=== PATIENT | female | born 1950 | race Two or more races ===

== ENCOUNTER 2025-01-27 11:18 | Outpatient (AMB) | payer OTHER, SELFPAY ==
--- NOTE | 2025-01-27 11:29 | A.OFFVIS_ITS ---
Intake Visit Reasons: 6 Month f/u Allergies No Known Allergies Allergy (Verified 01/19/25 13:08) HPI Comments Details: 74 y/o woman with HTN, DM, cerebral microvascular changes of brain and associated dementia, and migraine vs complex partial seizure disorder resulting in confusion or unresponsiveness. She is presenting with reported insomnia and memory lapses. She experiences early childhood teacher awakenings around 3:00 AM, often after going to bed at 8:00 PM. Discontinuation of trazodone was due to resultant grogginess. Notable memory lapses include leaving a pot on the stove, indicating occasional distractibility. Overall, the patient reports no significant mood disturbances or changes in bladder function and remains physically active without other health issues. [facility] Medical History (Updated 01/27/25 @ 11:35 by Meek Elizabeth MD) Alzheimer dementia Anxiety Multifactorial dementia MCI (mild cognitive impairment) Insomnia Migraine Vascular dementia Cerebral microvascular disease Complex partial seizures Review of Systems Const Details: - Sleep: Reports insomnia with early awakenings - Memory: Reports lapses - Mood: Denies mood disturbances - Bladder: Denies changes in bladder function Physical Exam Neuro Other: Mental Status: Alert and oriented to person, place, and time. Normal attention. Normal spontaneous speech, fluency, and comprehension. Cranial Nerves: CN II: Visual soni full to confrontation, visual acuity intact. CN III, IV, : Pupils equal, round, reactive to light and accommodation. Extraocular movements are normal. CN V: Facial sensation is normal. CN VII: Facial movements symmetrical. CN VIII: Hearing intact to bedside conversation is normal. CN IX, X: Palate elevates symmetrically. CN XI: Shoulder shrug and head turn symmetrical. CN XII: Tongue midline without atrophy or fasciculations. Coordination: Qunsod-rl-opyk and eavs-iq-hyph testing normal. No dysmetria. Gait and Station: No obvious gait abnormality. No ataxia or instability. Extrapyramidal: Full facial expressions and blinking. No rigidity. Movements are appropriate with no tremor or abnormality. Speech: Normal; no dysarthria or tremor. Assessment & Plan Assessment & Plan (1) Alzheimer dementia: Comment: MRI leland at [facility] w/o cont in 2011: Multiple bilateral WM lesions, somewhat atypical, ?infarcts, ?vascular pathology, not periventricular MRI brain at [facility] in Sep w/o: No sig change from previous MRI 24 hr EEG at [facility] in 2012: minimal abn, no event reported Routine EEG at office in 2020: WNL Routine EEG at office in 2014: WNL Routine EEG at office in 2012: WNL Code(s): G30.9 - Alzheimer's disease, unspecified; F02.80 - Dementia in other diseases classified elsewhere, unspecified severity, without behavioral disturbance, psychotic disturbance, mood disturbance, and anxiety Category: Medical Qualifiers: Alzheimer's disease onset: late onset Dementia severity: mild Dementia behavioral or psychological symptom: without behavioral, psychotic, or mood disturbance or anxiety Qualified Code(s): G30.1 - Alzheimer's disease with late onset; F02.A0 - Dementia in other diseases classified elsewhere, mild, without behavioral disturbance, psychotic disturbance, mood disturbance, and anxiety Plan Impression: Mild dementia probably of Alzheimer type Rec: Donepezil 10mg a day Medications: New donepezil 10 mg PO BEDTIME 90 tabs 1RF Coding Level of Care Code Est Pt Level 4 (81683) Diagnoses Mild late onset Alzheimer's dementia without behavioral disturbance, psychotic disturbance, mood disturbance, or anxiety G30.1; F02.A0 Alzheimer's disease onset: late onset Dementia severity: mild Dementia behavioral or psychological symptom: without behavioral, psychotic, or mood disturbance or anxiety
--- OUTSIDE RECORDS SUMMARY | 2025-01-27 12:41 | XMS_ITS | Clinical Summary ---
Author Organization [employer] Address [address] [place] [address] Care Team Providers Care Mri Technician Name Role Phone Unavailable Primary Care Provider Unavailabl e Allergies No known active allergies Medications atorvastatin (Lipitor) 80 MG tablet Take 1 tablet by mouth. 10/17/2023 Active B Complex Vitamins (Vitamin B Complex) capsule 02/04/2024 Active B Tjlnlgc-W-Duhkx Acid (WesCaps) 1 MG capsule 04/28/2024 Active Calcium Carb-Cholecalci ferol 500-10 MG-MCG tablet 08/01/2023 Activ e gabapentin (Neurontin) 300 MG capsule Take 1 capsule by mouth. 11/29/2023 Active OneTouch Ultra Test test strip 05/04/2024 Act angie Lancets (OneTouch Delica Plus [id number]) misc 04/09/2024 Act angie metFORMIN (Glucophage) 500 MG tablet Take 1 tablet by mouth. 10/18/2023 Active polyethylene glycol, PEG, 3350 (Glycolax) 17 GM/SCOOP powder 05/11/2024 Active verapamil ER (Verelan) 180 MG 24 hr capsule Take 1 capsule by mouth. 10/18/2023 Active Active Problems Problem Noted Date Diagnosed Date Abnormal cytological findings in female genital organs 06/18/2024 Cervical spondylosis 06/18/2024 Epilepsy 06/18/2024 Family history of alcoholism in brother 06/18/19 Family history of diabetes mellitus 06/18/2024 Family history of hypertension 06/18/2024 GERD (gastroesophageal reflux disease) Hypercholesterolemia 06/18/2024 Hypertension 06/18/2024 Migraines 06/18/2024 Mild major depression 06/18/2024 Osteoarthritis of carpometacarpal (CMC) joint of thumb 06/18/2024 Osteoarthritis of hip 06/18/2024 Transient global amnesia 06/18/2024 Vitamin D deficiency 06/18/2024 Osteoporosis 05/31/2021 Social History Tobacco Use Types Packs/Day Years Used Date Smoking Tobacco: Never Passive Smoke Exposure: Never Smokeless Tobacco: Never Tobacco Cessation:Counseling Given: Not Answered Alcohol Use Standard Drinks/Week Comments Defer 0 (1 standard drink = 0.6 oz pur e alcohol) Comments Unknown Sex and Gender Information Value Date Recorded Sex Assigned at Female 04/09/2022 10:30 AM EDT Legal Sex Female 10:30 AM EDT Gender Identity Female 04/09/2022 10:30 AM EDT Sexual Orientation Straight 04/09/2022 10 :30 AM EDT Last Filed Vital Signs Vital Sign Reading Time Taken Comments Blood Pressure 110/80 06/18/2024 3:07 PM EST Pulse - - Temperature - - Respiratory Rate - - Oxygen Saturation - - Inhaled Oxygen Concentration - - Weight - - Height - - Body Mass Index - - Plan of Treatment Health Maintenance Due Date Last Done Comments CT Colonography 1950 Colonoscopy 1950 Colorectal Cancer Screening 1950 Depression Screening 1950 FIT DNA/Cologuard 1950 FIT 1950 FOBT 1950 Lipid Panel 1950 SDOH Screening 1950 Sigmoidoscopy 1950 Alcohol/Substance Use Screening 1962 Hepatitis C Screening 1968 Zoster Vaccines (2 of 3) 01/14/2016 11/19/2015 COVID-19 Vaccine ( season) 2024 04/02/2021, 08/11/2020, 07/22/2020 Dental Oral Exam 11/20/2024 05/21/2024, 01/2022, 09/05/2018, Additional history exists Dental Prophylaxis 11/20/2024 05/21/2024, 0 08/15/2021, 04/18/2018, Additional history exists Influenza Vaccine (#1) 2025 , 03/22/2022, 03/21/2021, Additional history exists RSV Patients and Patients Aged 60 years or older (1 - 1-dose 75+ series) 2025 Dental X-Ray: Bitewings 05/22/2025 05/21/20 24, 08/15/2021, 09/05/2018, Additional history exists Tobacco Screening 06/18/2025 06/18/2024 DTaP/Tdap/Td Vaccines (2 - Td or Tdap) 09/13/2025 09/14/2015 Mammogram 05/13/2026 05/13/2024 Dental X-Ray: Full Mouth 05/22/2027 05/21/2024, 03/11 Pneumococcal Vaccine: 50+ Years Completed 10/18/2023, 04/18/2017, 09/05/2016, Additional history exists HIB Vaccines Aged Out No longer eligi ble based on patient's age to complete this topic HPV Vaccines Aged Out No longer eligi ble based on patient's age to complete this topic Hepatitis A Vaccines Aged Out No long er eligible based on patient's age to complete this topic Hepatitis B Vaccines Aged Out No long er eligible based on patient's age to complete this topic IPV Vaccines Aged Out No longer eligi ble based on patient's age to complete this topic Meningococcal B Vaccine Aged Out No l onger eligible based on patient's age to complete this topic Meningococcal Vaccine Aged Out No eric scott eligible based on patient's age to complete this topic RSV under 20 months Aged Out No longe r eligible based on patient's age to complete this topic Rotavirus Vaccines Aged Out No longer eligible based on patient's age to complete this topic Procedures Procedure Name Priority Date/Time Associated Diagnosis Comments PROPHYLAXIS - ADULT Routine 05/21/2024 1 :00 PM EST Dental caries INTRAORAL - COMPLETE SERIES OF RADIOGRAPHIC IMAGES Routine 05/21/2024 1:00 PM EST Dental caries PERIODIC ORAL EVALUATION - ESTABLISHED PATIENT Routine 05/21/2024 1:00 PM EST Dental caries from Last 3 Months or Most Recently Relevant to Health Maintenance Insurance DENTAL - [facility]
--- OUTSIDE RECORDS SUMMARY | 2025-01-27 12:41 | XMS_ITS | Clinical Summary ---
Author Organization [facility] Address [address] [place] [address] Phone Care Team Providers Care Highway Maintenance Technician Name Role Phone Red Quinones MD Primary Care Provider [phone] Allergies No known active allergies Medications metFORMIN (GLUCOPHAGE) 500 mg tablet Take 1 tablet (500 mg total) by mouth 1 (one) time each day with breakfast. 10/18/2023 Active lisinopriL (PRINIVIL,ZESTR IL) 20 mg tablet Take 1 tablet (20 mg total) by mouth 1 (one) time each day. 04/13/2024 6 Active calcium carbonate-vitam in D3 (Caltrate 600 plus D) 600 mg-20 mcg (800 unit) tablet,chewable Chew 1 tablet. 02/28/2024 5 Active atorvastatin (LIPITOR) 80 mg tablet Take 1 tablet (80 mg total) by mouth. 10/17/2023 Active Wescaps 1 mg capsule 06/24/2024 Active verapamil ER (VERELAN) 180 mg 24 hr capsule Take 1 capsule (180 mg total) by mouth. 10/18/2023 Active vitamin B complex-folic acid 0.4 mg tablet 10/22/2023 Active Surgical History Surgery Date Site/Laterality Comments STEREOTACTIC CORE BIOPSY Right HYSTERECTOMY Medical History Medical History Date Comments Hypertension Hyperlipidemia Diabetes mellitus (CMS/HCC V24, CMS/HCC V28) Chronic constipation OCCATIONAL Social History Tobacco Use Types Packs/Day Years Used Date Smoking Tobacco: Former Cigarettes Smokeless Tobacco: Former Tobacco Cessation:Counseling Given: Not Answered Alcohol Use Standard Drinks/Week Comments Not Currently 0 (1 standard drink = 0.6 oz pur e alcohol) Interpersonal Safety Answer Date Record ed Physical Abuse 06/30/2024 Verbal Abuse 06/30/2024 Comments No Sex and Gender Information Value Date Recorded Sex Assigned at Female 04/28/2024 2:11 PM EST Legal Sex Female 9:10 AM EST Gender Identity Female 04/28/2024 2:11 PM EST Sexual Orientation Straight 04/28/2024 2: 11 PM EST Obstetrics History Para Term AB IAB SAB Ectopic Multiple Livin g Live Births 3 Last Filed Vital Signs Vital Sign Reading Time Taken Comments Blood Pressure 122/73 06/30/2024 9:50 AM EST Pulse 78 06/30/2024 9:50 AM EST Temperature 36.8 C (98.3 F) 06/30/2024 9:30 AM EST Respiratory Rate 18 06/30/2024 9:50 AM EST Oxygen Saturation 99% 06/30/2024 9:50 AM EST Inhaled Oxygen Concentration - - Weight 55.8 kg (123 lb) 06/30/2024 8:42 AM EST Height 146.3 cm (4' 9.6 ) 06/30/2024 8:42 AM EST Body Mass Index 26.07 06/30/2024 8:42 AM EST Plan of Treatment Health Maintenance Due Date Last Done Comments Diabetes: Annual GFR (Glomerular Filtration Rate) 1950 Diabetes: Annual Foot Exam 1960 Diabetes: Annual Retina Eye Exam 1960 Zoster Vaccines (2 of 3) 01/14/2016 11/19/2015 Cholesterol Screening (Lipid Panel) 05/13/2022 Hepatitis C Screening 05/13/2022 Medicare Annual Wellness Visit 05/13/2022 Social Influencers of Health Screening 05/13/2022 COVID-19 Vaccine ( season) 2024 04/02/2021, 08/11/2020, 07/22/2020 Diabetes: Annual Urine Albumin-Creatinine Ratio (uACR) 05/13/2024 Diabetes: Blood Sugar Control Test (HGBA1C) 05/13/2024 Hypertension/CHF/CAD Annual BMP Blood Test 05/13/2024 Depression Screening 06/10/2024 Influenza Vaccine (#1) 2025 3, 03/22/2022, 03/21/2021, Additional history exists RSV Immunization Adult Patients (1 - 1-dose 75+ series) 2025 Falls Risk Assessment 06/30/2025 06/30/2024 DTaP,Tdap,and Td Vaccines (2 - Td or Tdap) 09/13/2025 09/14/2015 Breast Cancer Screening 05/13/2026 05/13/20 24, 04/09/2023, 10/07/2018 Osteoporosis Screening (Bone Density Screening) 04/09/2033 04/09/2023, 10/08/2018 Colorectal Cancer Screening: Colonoscopy 06/30/2034 06/30/2024 Pneumococcal Vaccine: 50+ Years Completed 10/18/2023, 04/18/2017, [...] on patient's age to complete this topic MMR Vaccines Aged Out No longer eligi ble based on patient's age to complete this topic Meningococcal ACWY Vaccine Aged Out N o longer eligible based on patient's age to complete this topic Meningococcal B Vaccine Aged Out No l onger eligible based on patient's age to complete this topic RSV Immunization Patients Under 20 months Aged Out No longer eligible based on patient's age to complete this topic Varicella Vaccines Aged Out No longer eligible based on patient's age to complete this topic Procedures Procedure Name Priority Date/Time Associated Diagnosis Comments COLONOSCOPY Routine 06/30/2024 9:29 AM EST Encounter for screening for malignant neoplasm of colon MG MAMMO DIGITAL SCREENING W JOHN BILAT Routine 05/13/2024 2:34 PM EST Encounter for screening mammogram for breast cancer SHILPI DEXA AXIAL SKELETON Routine 04/09/2023 3:28 PM EDT Age-related osteoporosis without current pathological fracture from Last 3 Months or Most Recently Relevant to Health Maintenance Results * COLONOSCOPY Anesthesia - MAC; [facility] ENDOSCOPY (06/30/2024 9:29 AM EST) Anatomical Region Laterality Modality Endoscopy 06/30/2024 9:03 AM EST Impressions 06/30/2024 9:33 AM EST - Two 3 to 4 mm polyps in the rectum. Biopsied. - The examination was otherwise normal on direct and retroflexion views. Recommendation: - Await pathology results. - Repeat colonoscopy in 5 years for surveillance. Narrative 06/30/2024 9:33 AM EST [facility] GI Patient Name: Zayda Buck Procedure Date: 06/30/2024 9:03 AM Date of : 1950 Age: 74 Room: ROOM 15 Gender: Female Note Status: Finalized Attending MD: Tres Malave MD, Procedure Date No Time: 06/30/2024 Procedure: Colonoscopy Indications: Colon cancer screening in patient at increased risk: Family history of 1st-degree relative with colon polyps before age 60 years Providers: Tres Malave MD Referring MD: Tres Malave MD Medicines: Propofol per Anesthesia Complications: No immediate complications. Estimated Blood Loss: Estimated blood loss: none. Procedure: Pre-Anesthesia Assessment: - ASA Grade Assessment: II - A patient with mild systemic disease. After I obtained informed consent, the scope was passed under direct vision. Throughout the procedure, the patient's blood pressure, pulse, and oxygen saturations were monitored continuously.The Olympus Pediatric Colonoscope was introduced through the anus and advanced to the cecum, identified by appendiceal orifice and ileocecal valve. The colonoscopy was performed without difficulty. The patient tolerated the procedure well. The quality of the bowel preparation was good. Findings: The perianal and digital rectal examinations were normal. Two sessile polyps were found in the rectum. The polyps were 3 to 4 mm in size. These were biopsied with a cold jumbo forceps for histology. The exam was otherwise without abnormality on direct and retroflexion views. Procedure Code(s): --- Professional --- 75342, Colonoscopy, flexible; with biopsy, single or multiple Diagnosis Code(s): --- Professional --- Z83.71, Family history of colonic polyps D12.8, Benign neoplasm of rectum CPT copyright 2020 [employer]. All rights reserved. The codes documented in this report are preliminary and upon superintendent distribution review may be revised to meet current compliance requirements. Tres Malave MD 06/30/2024 9:33:34 AM This report has been signed electronically.Tres Malave MD Number of Addenda: 0 Note Initiated On: 06/30/2024 9:03 AM Scope In: Scope Out: Endoscopy Department at [facility] - [address] [place] [id number] Procedure Note Tres Malave MD - 06/30/2024 [facility] GI Patient Name: Zayda Buck Procedure Date: 06/30/2024 9:03 AM Date of : 1950 Age: 74 Room: ROOM 15 Gender: Female Note Status: Finalized Attending MD: Tres Malave MD, Procedure Date No Time: 06/30/2024 Procedure: Colonoscopy Indications: [facility]: Family history of 1st-degree relative with colon polyps before age 60 years Providers: Tres Malave MD Referring MD: Tres Malave MD Medicines: Propofol per Anesthesia Complications: No immediate complications. Estimated Blood Loss: Estimated blood loss: none. Procedure: Pre-Anesthesia Assessment: - ASA Grade Assessment: II - A patient with mild systemic disease. After I obtained informed consent, the scope was passed under direct vision. Throughout theprocedure, the patient's blood pressure, pulse, and oxygen saturations were monitored continuously.The Olympus Pediatric Colonoscope was introduced through theanus and advanced to the cecum, identified byappendiceal orifice and ileocecal valve. The colonoscopy was performed without difficulty. The patient tolerated the procedure well. The quality of the bowel preparation was good. Findings: The perianal and digital rectal examinations were normal. Two sessile polyps were found in the rectum. The polyps were 3 to 4 mm in size. These were biopsied with a cold jumbo forceps for histology. The exam was otherwise without abnormality ondirect and retroflexion views. Procedure Code(s): --- Professional --- 62555, Colonoscopy, flexible; with biopsy, singleor multiple Diagnosis Code(s): --- Professional --- Z83.71, Family history of colonic polyps D12.8, Benign neoplasm of rectum CPT copyright 2020 [employer]. All rights reserved. The codes documented in this report are preliminary and upon superintendent distribution reviewmay be revised to meet current compliance requirements. Tres Malave MD 06/30/2024 9:33:34 AM This report has been signed electronically.Tres Malave MD Number of Addenda: 0 Note Initiated On: 06/30/2024 9:03 AM Scope In: Scope Out: Endoscopy Department at [facility] - [address] [place] [id number] IMPRESSION: - Two 3 to 4 mm polyps in the rectum. Biopsied. - The examination was otherwise normal on directand retroflexion views. Recommendation: - Await pathology results. - Repeat colonoscopy in 5 years for surveillance. Tres Malave MD GI~PROCEDURE ORDERABLES Fin al Result * MG Mammo Digital Screening w John bilat (05/13/2024 2:34 PM EST) Anatomical Region Laterality Modality Breast Bilateral Mammography 05/13/2024 3:58 PM EST Impressions 05/13/2024 3:59 PM EST No evidence of breast malignancy. BI-RADS CATEGORY: 1 - NEGATIVE RECOMMENDATION: Screening bilateral mammogram is recommended in 1 year. Mammo Location: [facility], [address] [place] [address], [id number], . -------- FINAL REPORT -------- Dictated By: Deisy Odonnell Dictated Date: 05/13/2024 15:58 ET Assigned Physician: Deisy Odonnell Reviewed and Electronically Signed By: Deisy Odonnell Signed Date: 05/13/2024 15:59 ET Workstation ID: [id number] Transcribed By: Self Edit Transcribed Date: 05/13/2024 15:59 ET Narrative 05/13/2024 3:59 PM EST CLINICAL: 74 years old, Female, routine annual exam. COMPARISON: 04/09/2023 and 10/07/2018 TECHNIQUE: Bilateral MLO and CC views were obtained digitally with 3-D mammogram (digital breast tomosynthesis). Computer-aided detection was utilized in evaluation of this exam (CAD). FINDINGS: There is no evidence of suspicious mass or architectural distortion. No worrisome calcifications are evident. There has been no significant change from prior exam(s). BREAST DENSITY: C - The breasts are heterogeneously dense which may obscure small masses. Procedure Note Deisy Odonnell MD - 05/13/2024 CLINICAL: 74 years old, Female, routine annual exam. COMPARISON: 04/09/2023 and 10/07/2018 TECHNIQUE: Bilateral MLO and CC views were obtained digitally with 3-Dmammogram (digital breast tomosynthesis). Computer-aided detection wasutilized in evaluation of this exam (CAD). FINDINGS: There is no evidence of suspicious mass or architectural distortion. Noworrisome calcifications are evident. There has been no significantchange from prior exam(s). BREAST DENSITY: C - The breasts are heterogeneously dense which mayobscure small masses. IMPRESSION: No evidence of breast malignancy. BI-RADS CATEGORY: 1 - NEGATIVE RECOMMENDATION: Screening bilateral mammogram is recommended in 1 year. Mammo Location: [facility], [address] [place] [address], [id number], . -------- FINAL REPORT -------- Dictated By: Deisy Odonnell Dictated Date: 05/13/2024 15:58 ET Assigned Physician: Deisy Odonnell Reviewed and Electronically Signed By: Deisy Odonnell Signed Date: 05/13/2024 15:59 ET Workstation ID: [id number] Transcribed By: Self Edit Transcribed Date: 05/13/2024 15:59 ET us Self Referral Sppl IMG BI PROCEDURES Final Resul t * SHILPI DEXA AXIAL SKELETON (04/09/2023 3:28 PM EDT) Anatomical Region Laterality Modality Mammography 04/09/2023 1:43 PM EDT Narrative 04/09/2023 3:28 PM EDT [facility] Diagnostic Imaging Department [address] [place] [id number] Patient: ZAYDA BUCK /Age/Sex: 1950 - 72 - F Unit#: [id number] Location/Status: SPDIMAM/REG CLI Mnemonic/Ordering Site: MAMDEXAAX/SPMAM Ordering Physician: ALFRED SILVA NP Shilpi Dexa Axial Skeleton - 04/09/23 - [id number] Report Status:Signed History: Low estrogen state due to menopause. Comparison: 10/07/18 Findings: Bone densitometry is performed utilizing dual energy x-ray absorptiometry (DXA) in the [employer]ig[employer]agsy unit. The lumbar spine and proximal femora are evaluated in the AP projection. The FRAX questionaire was completed. The results indicate osteoporosis, with a lumbar spine T-score of -3.2. The Z score is -1.1, indicating low bone mineral density for age. There has been a small, statistically significant decrease in bone mineral density in the spine since the previous study. The detailed DEXA report will be mailed to the referring physician's office. DualFemur FRAX: 10-year Probability of Fracture: Major Osteoporotic 8.8 percent Hip 2.3 percent. IMPRESSION: Osteoporosis. [id number] Dictating Physician: MELL RODRIGUEZ MD Electronically Signed by: MELL RODRIGUEZ MD Dic Date/Time: 04/09/23 152 Sign date/Time: 04/09/231527 Procedure Note Mell Rodriguez MD - 07/16/2023 [facility] Diagnostic Imaging Department [address] [place] [address] Patient: ZAYDA BUCK /Age/Sex: 1950 - 72 - F Unit#: [id number] Location/Status: SPDIMAM/REG CLI Mnemonic[facility] Ordering Physician: ALFRED SILVA NP Shilpi Dexa Axial Skeleton - 04/09/23 - 8214 Report Status:Signed History: Low estrogen state due to menopause. Comparison: 10/07/18 Findings: Bone densitometry is performed utilizing dual energy x-ray absorptiometry(DXA) in the [employer]a. [employer]ig[employer]agsy unit. The lumbar spine and proximal femora areevaluated in the AP projection. The FRAX questionaire was completed. The results indicate osteoporosis, with a lumbar spine T-score of -3.2.The Z score is -1.1, indicating low bone mineral density for age. There has been a small, statistically significant decrease in bonemineral density in the spine since the previous study. The detailed DEXA reportwill be mailed to the referring physician's office. DualFemur FRAX: 10-year Probability of Fracture: Major Osteoporotic 8.8percent Hip 2.3 percent. IMPRESSION: Osteoporosis. [id number] Dictating Physician: MELL RODRIGUEZ MD Electronically Signed by: MELL RODRIGUEZ MD Dic Date/Time: 04/09/231525 Sign date/Time: 04/09/231527 us [facility]IVE ASSISTANT IMG BI PROCEDURES Final Resu lt from Last 3 Months or Most Recently Relevant to Health Maintenance Insurance MEDICAID - [place] [employer] MEDICARE Member Subscriber Plan / Payer ( fective 2017-Present) Name:Zayda Buck Relation to Subscriber:Self Name:Zayda Buck Payer ID:[id number] Group ID:[id number] Type:Not on file Address: [address] [place] [address] Care Teams [address] Maintenance Technician Relationship Specialty Start Date End Date Red Quinones MD [address] [place] [phone] PCP - General Internal Medicine 05/13/24
== END 2025-01-27 11:37 | disposition home or self-care (01) ==
LOC: HO.HSM 11:19
PROVIDERS: PCP Internal Medicine; Referring Provider Internal Medicine; Visit Provider Psychiatry & Neurology Neurology
DX: G30.1 Alzheimer's disease with late onset (principal); F02.A0 Dementia in other diseases classified elsewhere, mild, without behavioral disturbance, psychotic disturbance, mood disturbance, and anxiety
CPT/HCPCS: 99214

== ENCOUNTER → 2025-01-27 11:18 | Outpatient (BNVA) | payer OTHER, SELFPAY | PROVIDERS: PCP Internal Medicine; Referring Provider Internal Medicine; Visit Provider Psychiatry & Neurology Neurology | DX: G30.1 Alzheimer's disease with late onset (principal); F02.A0 Dementia in other diseases classified elsewhere, mild, without behavioral disturbance, psychotic disturbance, mood disturbance, and anxiety | CPT/HCPCS: 99212 ==